=== PATIENT | male | born 1990 | race American Indian/Alaskan Native ===

== ENCOUNTER 2016-09-29 21:17 | Emergency (ER) | payer OTHER ==
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
[2016-09-29] MEDS ORDERED: ZOFRAN ODT PO ONE (23:20)
[2016-09-29] MEDS ORDERED: PERCOCET 5/325 PO ONE (23:20)
[2016-09-29] MEDS ORDERED: THERMAZENE 50 GRAM TP ONE (23:20)
[2016-09-29] MEDS ORDERED: VALIUM PO ONE (23:20)
[2016-09-30] MEDS ORDERED: DILAUDID IM ONE (00:10)
[2016-09-30] MEDS ORDERED: BOOSTRIX IM ONE (00:11)
[2016-09-30 01:29] VITALS: BP 109/68
== END 2016-09-30 01:28 | disposition home or self-care (01) ==
LOC: ED 21:17
DX: T22.211A Burn of second degree of right forearm, initial encounter (principal); T25.622A Corrosion of second degree of left foot, initial encounter; T31.11 Burns involving 10-19% of body surface with 10-19% third degree burns; T79.9XXA Unspecified early complication of trauma, initial encounter; Z88.5 Allergy status to narcotic agent; T65.891A Toxic effect of other specified substances, accidental (unintentional), initial encounter; Y92.89 Other specified places as the place of occurrence of the external cause
CPT/HCPCS: 16020; 90471; 90715; 96372; 99283; J1170; Q0162

== ENCOUNTER 2016-10-03 07:57 | Outpatient (CLI) | payer OTHER | END 2016-10-03 07:58 | disposition home or self-care (01) | LOC: WOUND 07:57 | PROVIDERS: ATTEND Internal Medicine | DX: T22.111A Burn of first degree of right forearm, initial encounter (principal); T24.201A Burn of second degree of unspecified site of right lower limb, except ankle and foot, initial encounter; L23.5 Allergic contact dermatitis due to other chemical products; X10.2XXA Contact with fats and cooking oils, initial encounter; Y93.89 Activity, other specified; Y92.89 Other specified places as the place of occurrence of the external cause; Y99.8 Other external cause status | CPT/HCPCS: 99215; G0463 ==

== ENCOUNTER 2016-10-10 09:55 | Outpatient (CLI) | payer OTHER | END 2016-10-10 09:56 | disposition home or self-care (01) | LOC: WOUND 09:55 | PROVIDERS: ATTEND Internal Medicine | DX: T22.111A Burn of first degree of right forearm, initial encounter (principal); T24.231A Burn of second degree of right lower leg, initial encounter; T25.221A Burn of second degree of right foot, initial encounter; T23.221A Burn of second degree of single right finger (nail) except thumb, initial encounter; T31.0 Burns involving less than 10% of body surface; L23.5 Allergic contact dermatitis due to other chemical products; X10.2XXA Contact with fats and cooking oils, initial encounter; Y93.89 Activity, other specified; Y92.89 Other specified places as the place of occurrence of the external cause; Y99.8 Other external cause status | CPT/HCPCS: 99214; G0463 ==

== ENCOUNTER 2016-10-17 13:34 | Outpatient (CLI) | payer OTHER | END 2016-10-17 13:35 | disposition home or self-care (01) | LOC: WOUND 13:34 | PROVIDERS: ATTEND Internal Medicine | DX: T22.111A Burn of first degree of right forearm, initial encounter (principal); T24.231A Burn of second degree of right lower leg, initial encounter; L23.5 Allergic contact dermatitis due to other chemical products; X10.2XXA Contact with fats and cooking oils, initial encounter; Y93.89 Activity, other specified; Y92.89 Other specified places as the place of occurrence of the external cause; Y99.8 Other external cause status | CPT/HCPCS: 99213; G0463 ==

== ENCOUNTER 2016-10-24 09:57 | Outpatient (CLI) | payer OTHER | END 2016-10-24 09:58 | disposition home or self-care (01) | LOC: WOUND 09:57 | PROVIDERS: ATTEND Internal Medicine | DX: L23.5 Allergic contact dermatitis due to other chemical products (principal) | CPT/HCPCS: 99213; G0463 ==